=== PATIENT | male | born 1990 | race African-American/Black ===

== ENCOUNTER 2019-05-17 18:35 | Emergency (ER) | payer SELFPAY ==
[~2019-05-17] VITALS: Ht 172.7 cm; Wt 86.4 kg
[2019-05-17 18:39] VITALS: Ht 172.7 cm; Wt 86.4 kg
[2019-05-17] MEDS ORDERED: PROZAC20 MG PO (18:40)
[2019-05-17 19:13] VITALS: BP 128/79
== END 2019-05-17 19:13 | disposition home or self-care (01) ==
LOC: D.ER 18:35
DX: F22 Delusional disorders (principal); F15.10 Other stimulant abuse, uncomplicated